=== PATIENT | male | born 1970 | race Caucasian/White ===

== ENCOUNTER 2023-12-24 18:17 | Emergency (ER) | payer OTHER, SELFPAY ==
[2023-12-24 18:20] VITALS: BP 142/93; PULSE 65; TEMP 36.7; O2SAT 98; BMI 27.9
--- NOTE | 2023-12-24 18:25 | XR_ITS ---
The [address] [address] Patient Name: CARMELA AGUILERA MRN: [facility]:[id number] date: 1970 Sex: M Assigned Patient Location: ED.MAIN Current Patient Location: Accession/Order Number: [id number] Exam Date: 12/24/2023 18:58 Report Date: 12/24/2023 21:06 At the request of: GENNARO LUNA Procedure: XR forearm RT 2V XR forearm RT 2V, 12/24/2023 5:58 PM CDT: History: fall. . Comparison: None. Technique: 2 views right forearm Findings/Impression: There is an acute comminuted fracture of the distal radial metaphysis. The ulna is intact. There is soft tissue swelling surrounding the distal forearm. Electronically authenticated by: CALLI MCCURDY Date: 12/24/2023 21:06
--- NOTE | 2023-12-24 18:25 | ED_ITS ---
HPI HPI - General Adult General Chief complaint: Extremity Injury, Upper Stated complaint: Upper Extremity Injury from fall off Ladder Time Seen by Provider: 12/24/23 18:22 Source: patient Mode of arrival: walk-in Limitations: no limitations History of Present Illness HPI narrative: Patient is a 53-year-old male who presents to the emergency department for evaluation of an injury to the right wrist after falling off a ladder just prior to arrival. He states he fell on his right arm, no head injury or loss of consciousness. He denies any other associated injuries. He is left-hand do minant. He denies numbness or tingling to the extremity. He reports most of his pain over the wrist and distal forearm. No medications taken prior to arrival. He apparently went to urgent care prior to arrival and was refused and sent to the ER. Related Data Previous Rx's ?Medication ?Instructions ?Recorded ondansetron 4 mg disintegrating 4 mg PO Q6H PRN nausea and 12/24/23 tablet vomiting #12 tabs ondansetron 4 mg disintegrating 4 mg PO Q6H PRN nausea and 12/24/23 tablet vomiting #12 tabs oxycodone-acetaminophen 5 mg-325 1 tab PO Q6H PRN pain 4 days #15 12/24/23 mg tablet (Percocet) tabs oxycodone-acetaminophen 5 mg-325 1 tab PO Q6H PRN pain 4 days #15 12/24/23 mg tablet (Percocet) tabs Allergies Allergy/AdvReac Type Severity Reaction Status Date / Time No Known Drug Allergies Allergy Verified 12/24/23 18:20 Opioid HPI Opioid Management Most Recent Opioid Data: Last Pain Scale 10 12/24/23 18:32 Last MAY Pain Assessment 12/24/23 18:32 Review of Systems ROS Constitutional Denies: fever or chills Ears, nose, mouth, and throat Denies: throat pain or nasal congestion Respiratory Denies: shortness of breath Gastrointestinal Denies: nausea or vomiting Musculoskeletal Reports: extremity pain and joint pain; Denies: back pain or neck pain Neurological Denies: headache, numbness in extremities or weakness in extremities Hematologic/Lymphatic Denies: easy bruising or easy bleeding Exam Narrative Exam Narrative: Gen.: Awake, alert, in no distress Head: Normocephalic, atraumatic ENT: Moist mucous membranes Respiratory: No respiratory distress Extremities: Tenderness and swelling noted at the right wrist, normal flexion and extension of the fingers of the right hand. 2+ right radial pulse. No bony tenderness of the right humerus, right elbow or proximal forearm Psych: Normal mood and affect Neuro: No focal neuro deficit Skin: Warm, dry, intact Constitutional Vital Signs, click to edit/add: Last Vital Signs Temp 98.0 F 12/24/23 18:20 Pulse 66 12/24/23 19:05 Resp 18 12/24/23 19:05 BP 135/99 H 12/24/23 19:05 Pulse Ox 97 12/24/23 19:05 O2 Del Method Room Air 12/24/23 18:20 Course Vital Signs Vital signs: Vital Signs Temperature 98.0 F 12/24/23 18:20 Pulse Rate 65 12/24/23 18:20 Respiratory Rate 20 12/24/23 18:20 Blood Pressure 142/93 H 12/24/23 18:20 Pulse Oximetry 98 12/24/23 18:20 Oxygen Delivery Method Room Air 12/24/23 18:20 Temperature 98.0 F 12/24/23 18:20 Pulse Rate 66 12/24/23 19:05 Respiratory Rate 18 12/24/23 19:05 Blood Pressure 135/99 H 12/24/23 19:05 Pulse Oximetry 97 12/24/23 19:05 Oxygen Delivery Method Room Air 12/24/23 18:20 Medical Decision Making MDM Narrative Medical decision making narrative: X-rays show a well aligned comminuted right distal radius fracture. Patient was placed in a sugar-tong splint with sling and remains neurovascularly intact patient was medicated for pain with Dilaudid and Zofran and was remedicated prior to discharge with 50 mcg of fentanyl. He is hemodynamically stable and neurovascularly intact at discharge. He has seen Dr. Moses for orthopedics before he was instructed to call the [place] office tomorrow morning at 8 AM for an appointment time. Return to the ER if symptoms change or worsen. Medical Records Medical records reviewed: Yes I reviewed the patient's medical records Discharge Plan Discharge Chief Complaint: Extremity Injury, Upper Clinical Impression: Closed fracture of right distal radius Patient Disposition: Home, Self-Care Time of Disposition Decision: 19:22 Condition: Good Prescriptions / Home Meds: New oxycodone-acetaminophen [Percocet] 5-325 mg tablet 1 tab PO Q6H PRN (Reason: pain) 4 Days Qty: 15 0RF ondansetron 4 mg tablet,disintegrating 4 mg PO Q6H PRN (Reason: nausea and vomiting) Qty: 12 0RF oxycodone-acetaminophen [Percocet] 5-325 mg tablet 1 tab PO Q6H PRN (Reason: pain) 4 Days Qty: 15 0RF Rx Instructions: S62.102A ondansetron 4 mg tablet,disintegrating 4 mg PO Q6H PRN (Reason: nausea and vomiting) Qty: 12 0RF Print Language: Bol[place]ian Instructions: Arm Fracture in Adults (ED) Additional Instructions: Please call Dr. Moses's [place] office tomorrow morning at 8 am, they will tell you when to come to the office Referrals: GAUTAM ELKINS [Primary Care Provider] - 1 week
[2023-12-24] MEDS: ONDANSETRON PF 4 MG/2 ML VIAL IV (18:32)
[2023-12-24] MEDS: HYDROMORPHONE HCL 1 MG/ML CARTRIDGE IV (18:32)
[2023-12-24 19:05] VITALS: BP 135/99; PULSE 66; O2SAT 97
[2023-12-24 19:38] VITALS: BP 141/92; PULSE 64; O2SAT 97
[2023-12-24] MEDS: FENTANYL CITRATE/PF 100 MCG/2 ML VIAL 50 MCG IV (19:40)
== END 2023-12-24 19:50 | disposition home or self-care (01) ==
PROVIDERS: Emergency Provider Emergency Medicine; PCP Family Medicine
DX: S52.501A Unspecified fracture of the lower end of right radius, initial encounter for closed fracture (principal); W11.XXXA Fall on and from ladder, initial encounter
CPT/HCPCS: 73090; 96374; 96375; 99284; J1171; J2405; J3010